=== PATIENT | female | born 1940 | race Caucasian/White ===

== ENCOUNTER → 2017-12-17 13:27 | Outpatient (CLI) | payer MEDICARE, SELFPAY ==
--- NOTE | 2017-12-17 13:28 | US_ITS ---
US Arterial Ankle Brachial Ind History: Lymphedema, rest pain, skin changes ITS.REASON: Skin Change ORDERING PHYSICIAN: Dalia Cervantes DPM PATIENT AGE: 77 years TECHNIQUE: Segmental pressures obtained of both right and left leg. These are compared to brachial blood pressure to yield index at each level sampled including summary BRYAN. The data sheets from the procedure are available in PACS FINDINGS Rest study only performed today No prior studies available for comparison. Blood pressures reported are in millimeters mercury. RIGHT LEG BRYAN = not applicable due to noncompressibility of the ankle vessels. RIGHT LEG TBI=.8 Brachial BP: 170 Thigh BP: 168 Calf BP: 181 Ankle PT: >254 Ankle DP : >254 Digit =137 LEFT LEG BRYAN = 1.1 LEFT LEG TBI= .9 Brachial BPD: 175 Thigh BP: 175 Calf BP: 189 Ankle PT:189 Ankle DP: 173 Digit = 149 Pulses and waveforms: Normal IMPRESSION: 1. Ankle pressures were noncompressible therefore right BRYAN could not be calculated. Noncompressibility consistent with hardening of arteries. 2. The left BRYAN is normal. 3. Unremarkable TBI's
== END ==
PROVIDERS: PCP Family Medicine; Visit Provider Podiatrist
DX: R09.89 Other specified symptoms and signs involving the circulatory and respiratory systems (principal)
CPT/HCPCS: 93922

== ENCOUNTER 2018-02-04 13:00 | Outpatient (RCR) | payer MEDICARE, SELFPAY ==
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
== END 2018-02-04 13:05 | disposition home or self-care (01) ==
LOC: PT 13:00
PROVIDERS: PCP Family Medicine; Visit Provider Podiatrist
DX: R09.89 Other specified symptoms and signs involving the circulatory and respiratory systems (principal); R60.0 Localized edema
CPT/HCPCS: 97140; 97162; 97760